=== PATIENT | male | born 1985 | race Caucasian/White ===

== ENCOUNTER 2022-08-05 18:32 | Emergency (ER) | payer BC ==
[~2022-08-05] VITALS: Ht 188 cm; Wt 150.0 kg
[2022-08-05] MEDS ORDERED: IBUPROFEN 600 MG (MOTRIN) TAB PO ONE (19:00)
[2022-08-05 19:01] LABS: BASOPHILS % (AUTO) 0 % (0-10); EOSINOPHILS % (AUTO) 0 % (0-10); HEMATOCRIT 42 % (40-54); HEMOGLOBIN 14.7 g/dL (13.3-17.7); LYMPHOCYTES # (AUTO) 1.2 10^3/uL (1.0-4.0); LYMPHOCYTES % (AUTO) 11 % (12-44); MEAN CORPUSCULAR HEMOGLOBIN 30 pg (25-34); MEAN CORPUSCULAR HGB CONC 35 g/dL (32-36); MEAN CORPUSCULAR VOLUME 87 fL (80-99); MEAN PLATELET VOLUME 9.1 fL (9.0-12.2); MONOCYTES # (AUTO) 1.1 10^3/uL (0.0-1.0); MONOCYTES % (AUTO) 10 % (0-12); NEUTROPHILS # (AUTO) 8.5 10^3/uL (1.8-7.8); NEUTROPHILS % (AUTO) 79 % (42-75); PLATELET COUNT 272 10^3/uL (130-400); WHITE BLOOD COUNT 10.8 10^3/uL (4.3-11.0)
--- NOTE | 2022-08-05 19:09 | Diagnostic Imaging Report ---
INDICATION: Chest pain. FINDINGS: The heart size, mediastinal configuration and pulmonary vascularity are within normal limits. There is no pleural effusion, pneumothorax or pneumonia. The osseous structures are unremarkable. IMPRESSION: No acute cardiopulmonary abnormality. Dictated by: Dictated on workstation # [id number]
[2022-08-05 19:24] LABS: PROTHROMBIN TIME PATIENT 13.5 SEC (12.2-14.7)
[2022-08-05 20:09] LABS: BILIRUBIN,TOTAL 0.4 MG/DL (0.1-1.0); CREATININE SERUM 0.94 MG/DL (0.60-1.30); MAGNESIUM 1.8 MG/DL (1.6-2.4); POTASSIUM 3.1 MMOL/L (3.6-5.0); TOTAL PROTEIN 7.1 GM/DL (6.4-8.2)
--- NOTE | 2022-08-05 20:11 | ED Chest Pain ---
General Chief Complaint: Chest Pain Stated Complaint: INFLUENZA A+/CHEST TIGHTNESS/LEFT ARM TINGLING Nursing Triage Note: pt to ed with c/o chest tightness and left arm tingling, was dx with flu a yesterday, has been taking tylenol and ibuprofen for fever Source: patient Exam Limitations: no limitations History of Present Illness Date Seen by Provider: Aug 05, 2022 Time Seen by Provider: 19:10 Initial Comments Patient is a 37-year-old male who presents to the emergency department for evaluation of chest tightness and intermittent left arm tingling that began a f ew hours prior to arrival. Patient was diagnosed with flu a yesterday. His symptoms began on Saturday. He has been taking ibuprofen and Tylenol on a rotational basis for his fever. States he has also had general malaise, fatigue, cough, and nausea/vomiting. He has been taking Zofran at home for the nausea. Denies any history of heart or lung problems. The chest tightness sp ecifically worried him prompting him to present to the ER for further evaluation. Patient denies any significant shortness of air. Patient denies any history of smoking. Allergies and Home Medications Allergies Coded Allergies: No Known Drug Allergies (Unverified , 08/05/22) Patient Home Medication List Home Medication List Reviewed: Yes Dextromethorphan Polistirex (Dextromethorphan Polistirex) 30 Mg/5 Ml Mary.er.12h, 60 MG PO BID Prescribed by: Robb Buitrago on 08/05/222026 Review of Systems Review of Systems Constitutional: see HPI, chills, fever, malaise EENTM: No Symptoms Reported Respiratory: See HPI, Cough Cardiovascular: No Symptoms Reported Gastrointestinal: No Symptoms Reported Genitourinary: No Symptoms Reported Musculoskeletal: no symptoms reported Skin: no symptoms reported Psychiatric/Neurological: No Symptoms Reported Endocrine: No Symptoms Reported Hematologic/Lymphatic: No Symptoms Reported Past Ynjptno-Ewciaw-Orgvrb Hx Patient Social History Tobacco Use?: No Substance use?: No Alcohol Use?: No Immunizations Up To Date Influenza Vaccine Up-to-Date: No; Not Current Physical Exam Vital Signs Vital Signs - First Documented 08/05/22 18:43 Temp 39.9 Pulse 115 Resp 18 B/P (MAP) 162/106 (124) Pulse Ox 96 O2 Delivery Room Air Capillary Refill : Less Than 3 Seconds Height, Weight, BMI Height: '" Weight: lbs. oz. kg; 42.00 BMI Method: General Appearance: No Apparent Distress, WD/WN HEENT: PERRL/EOMI, TMs Normal, Normal ENT Inspection, Pharynx Normal Neck: Full Range of Motion, Normal Inspection, Non Tender, Supple Respiratory: Chest Non Tender, Lungs Clear, Normal Breath Sounds, No Accessory Muscle Use, No Respiratory Distress Cardiovascular: Regular Rate, Rhythm Gastrointestinal: Non Tender, Soft Neurologic/Psychiatric: Alert, Oriented x3, No Motor/Sensory Deficits, Normal Mood/Affect Skin: Normal Color, Warm/Dry Progress/Results/Core Measures Results/Orders Lab Results Laboratory Tests Test 08/05/22 18:53 Range/Units White Blood Count 10.8 4.3-11.0 10^3/uL Red Blood Count 4.84 4.30-5.52 10^6/uL Hemoglobin 14.7 13.3-17.7 g/dL Hematocrit 42 40-54 % Mean Corpuscular Volume 87 80-99 fL Mean Corpuscular Hemoglobin 30 25-34 pg Mean Corpuscular Hemoglobin Concent 35 32-36 g/dL Red Cell Distribution Width 12.3 10.0-14.5 % Platelet Count 272 130-400 10^3/uL Mean Platelet Volume 9.1 9.0-12.2 fL Immature Granulocyte % (Auto) 0 % Neutrophils (%) (Auto) 79 H 42-75 % Lymphocytes (%) (Auto) 11 L 12-44 % Monocytes (%) (Auto) 10 0-12 % Eosinophils (%) (Auto) 0 0-10 % Basophils (%) (Auto) 0 0-10 % Neutrophils # (Auto) 8.5 H 1.8-7.8 10^3/uL Lymphocytes # (Auto) 1.2 1.0-4.0 10^3/uL Monocytes # (Auto) 1.1 H 0.0-1.0 10^3/uL Eosinophils # (Auto) 0.0 0.0-0.3 10^3/uL Basophils # (Auto) 0.0 0.0-0.1 10^3/uL Immature Granulocyte # (Auto) 0.0 0.0-0.1 10^3/uL Prothrombin Time 13.5 12.2-14.7 SEC INR Comment 1.0 0.8-1.4 Activated Partial Thromboplast Time 32 24-35 SEC Sodium Level 139 135-145 MMOL/L Potassium Level 3.1 L 3.6-5.0 MMOL/L Chloride Level 101 98-107 MMOL/L Carbon Dioxide Level 23 21-32 MMOL/L Anion Gap 15 H 5-14 MMOL/L Blood Urea Nitrogen 8 7-18 MG/DL Creatinine 0.94 0.60-1.30 MG/DL Estimat Glomerular Filtration Rate 108 BUN/Creatinine Ratio 9 Glucose Level 109 H 70-105 MG/DL Calcium Level 9.0 8.5-10.1 MG/DL Corrected Calcium 9.0 8.5-10.1 MG/DL Magnesium Level 1.8 1.6-2.4 MG/DL Total Bilirubin 0.4 0.1-1.0 MG/DL Aspartate Amino Transf (AST/SGOT) 38 H 5-34 U/L Alanine Aminotransferase (ALT/SGPT) 58 H 0-55 U/L Alkaline Phosphatase 83 40-136 U/L Myoglobin 39.2 10.0-92.0 NG/ML Troponin I < 0.028 <0.028 NG/ML Total Protein 7.1 6.4-8.2 GM/DL Albumin 4.0 3.2-4.5 GM/DL My Orders Orders - ROBB BUITRAGO [employer] Cbc With Automated Diff (08/05/22 18:51) Magnesium (08/05/22 18:51) Chest 1 View, Ap/Pa Only (08/05/22 18:51) Ekg Tracing (08/05/22 18:51) Comprehensive Metabolic Panel (08/05/22 18:51) Myoglobin Serum (08/05/22 18:51) Protime With Inr (08/05/22 18:51) Partial Thromboplastin Time (08/05/22 18:51) O2 (08/05/22 18:51) Monitor-Rhythm Ecg Trace Only (08/05/22 18:51) Ed Iv/Invasive Line Start (08/05/22 18:51) Troponin I Rosario (08/05/22 18:51) Ibuprofen Tablet (Motrin Tablet) (08/05/22 19:00) Ondansetron Oral Dissolve Tab (Zofran (08/05/22 20:15) Medications Given in ED Current Medications Medications Dose Ordered Sig/Chriss Route Start Time Stop Time Status Last Admin Dose Admin Ibuprofen 600 mg ONCE ONCE PO 08/05/22 19:00 08/05/22 19:01 DC 08/05/22 18:59 600 MG Ondansetron HCl 4 mg ONCE ONCE PO 08/05/22 20:15 08/05/22 20:16 DC 08/05/22 20:19 4 MG Vital Signs/I&O 08/05/22 08/05/22 18:43 20:33 Temp 39.9 Pulse 115 88 Resp 18 18 B/P (MAP) 162/106 (124) 119/63 Pulse Ox 96 96 O2 Delivery Room Air Room Air Blood Pressure Mean: 124 Progress Progress Note : Progress Note Patient is nontoxic and well-hydrated on exam. No adventitious lung sounds or increased work of breathing noted. Vital signs are reassuring. Patient is very mildly tachycardic. This is not surprising given patient has known influenza. Chest pain work-up was obtained. EKG without acute ischemic change or arrhythmia. Laboratory evaluation is unremarkable. Specifically there is no elevation in troponin. Chest x-ray is acutely negative. Patient did have some nausea and vomiting in the ED and a ODT Zofran was given. Patient will be discharged home with recommendations for supportive care and close follow-up with PCP. Return precautions for urgent symptomology discussed. Patient verbalized understanding EKG : EKG Time: 18:57 Rate: 106 Rhythm: S.Tach ECG Impression: Normal Departure Impression Primary Impression: Influenza Disposition: 01 HOME, SELF-CARE Condition: Stable Departure-Patient Inst. Decision time for Depature: 20:25 Patient Instructions: Flu, Adult ED Scripts Dextromethorphan Polistirex (Dextromethorphan Polistirex) 30 Mg/5 Ml Mary.er.12h 60 MG PO BID for 7 Days, #140 ML 0 Refills Prov: ROBB BUITRAGO APRN 08/05/22 ROBB BUITRAGO APRN Aug 05, 2022 20:11
[2022-08-05] MEDS ORDERED: ONDANSETRON 4 MG (ZOFRAN) ORAL DISSOLVE TAB PO ONE (20:15)
[2022-08-05] MEDS ORDERED: DEXT30SU19 PO (20:27)
[2022-08-05 20:33] VITALS: BP 119/63
== END 2022-08-05 20:34 | disposition home or self-care (01) ==
LOC: ER 18:36
DX: J11.1 Influenza due to unidentified influenza virus with other respiratory manifestations (principal)
CPT/HCPCS: 36415; 71045; 80053; 83735; 83874; 84484; 85025; 85610; 85730; 93005; 93041